=== PATIENT | female | born 1965 | race African-American/Black ===

== ENCOUNTER 2023-02-12 09:07 | Emergency (ER) | payer MEDICARE, OTHER ==
[~2023-02-12] VITALS: Ht 172.7 cm; Wt 110.7 kg
[2023-02-12 09:33] VITALS: O2SAT 98
[2023-02-12] MEDS ORDERED: ONDANSETRON ODT4 MG PO (09:47)
[2023-02-12] MEDS ORDERED: AMOXICILLIN875 MG PO (09:47)
== END 2023-02-12 09:51 | disposition home or self-care (01) ==
LOC: ER 09:13
DX: J02.9 Acute pharyngitis, unspecified (principal); R11.2 Nausea with vomiting, unspecified; R53.83 Other fatigue; E11.9 Type 2 diabetes mellitus without complications; K21.9 Gastro-esophageal reflux disease without esophagitis; Z96.643 Presence of artificial hip joint, bilateral
CPT/HCPCS: 99283